=== PATIENT | female | born 1990 | race African-American/Black ===

== ENCOUNTER 2018-12-01 13:32 | Emergency (ER) | payer OTHER ==
[~2018-12-01] VITALS: Ht 170.2 cm; Wt 81.6 kg
[2018-12-01 13:36] VITALS: BP 141/84
== END 2018-12-01 14:28 | disposition home or self-care (01) ==
LOC: ER 13:40 → EDBD 13:40 → ER 14:28
DX: Z04.6 Encounter for general psychiatric examination, requested by authority (principal); F15.10 Other stimulant abuse, uncomplicated; F12.10 Cannabis abuse, uncomplicated; J44.9 Chronic obstructive pulmonary disease, unspecified; F17.210 Nicotine dependence, cigarettes, uncomplicated; Z59.0 Homelessness
CPT/HCPCS: 81025